=== PATIENT | female | born 1935 | race Two or more races ===

== ENCOUNTER → 2016-11-17 | Outpatient (CLI) | payer MEDICARE, OTHER ==
[~2016-11-17] MED LIST: ACET-1079 PO; B-CO1CAP6 PO; CHOL20007 PO; DULO60CA PO; FURO20TA3 PO; LACT10SO44 OR; MAGN400T5 PO; METO25TA5 PO; MULT-195 OR; PANT1INJ3 PO; POT20T PO
[2016-11-17 11:06] LABS: Urine Bilirubin Negative (Negative); Urine Color Yellow (Yellow); Urine Glucose Normal (Normal); Urine Ketone Negative (Negative); Urine RBC 12 /hpf (0 - 4); Urine Squamous Epithelial Cell MANY /hpf (<5); Urine Urobilinogen Normal (Negative); Urine WBC Clumps PRESENT /hpf (None Seen); Urine pH 5.5 (5.0-8.0)
[2016-11-17 11:08] LABS: Urine Blood 1+ /uL (Negative); Urine Nitrite POSITIVE (Negative)
== END | disposition home or self-care (01) ==
LOC: LAB 10:21
PROVIDERS: ATTEND Internal Medicine
DX: N39.0 Urinary tract infection, site not specified (principal)
CPT/HCPCS: 81001; 87086

== ENCOUNTER → 2017-01-06 | Outpatient (CLI) | payer MEDICARE, OTHER, MEDICAID ==
[2017-01-06 11:09] LABS: Urine Bilirubin Negative (Negative); Urine Blood Negative /uL (Negative); Urine Color Yellow (Yellow); Urine Glucose Normal (Normal); Urine Hyaline Cast FEW /lpf (0 - 2); Urine Ketone Negative (Negative); Urine Nitrite Negative (Negative); Urine RBC <1 /hpf (0 - 4); Urine Squamous Epithelial Cell FEW /hpf (<5); Urine Urobilinogen Normal (Negative)
[2017-01-06 11:26] LABS: Albumin 3.4 g/dL (3.4-5.0); BUN/Creatinine Ratio 25.5; Calcium 7.9 mg/dL (8.5-10.1); Phosphorus 3.5 mg/dL (2.5-4.90); Potassium 4.5 mmol/L (3.5-5.1)
== END | disposition home or self-care (01) ==
LOC: LAB 09:46
PROVIDERS: ATTEND Internal Medicine
DX: N39.0 Urinary tract infection, site not specified (principal)
CPT/HCPCS: 36415; 80069; 81001; 82607; 84443; 87086

== ENCOUNTER → 2017-01-22 | Outpatient (CLI) | payer MEDICARE, OTHER ==
[2017-01-22 13:32] LABS: Basophils # (auto) 0 uL; Basophils % (auto) 0.3 % (0.0-2.0); Eosinophils # (auto) 0.1 uL; Eosinophils % (auto) 1.8 % (0.0-7.0); Hematocrit 34.2 % (36.0-46.0); Hemoglobin 11.3 g/dL (12.2-16.2); Lymphocytes # (auto) 1.2 uL; Lymphocytes % (auto) 18.8 % (10.0-50.0); Mean Corpuscular Hemoglobin 32.1 pg (28.0-32.0); Mean Corpuscular Hgb Conc. 32.9 g/dL (32.0-36.0); Mean Corpuscular Volume 97.5 fL (80.0-100.0); Mean Platelet Volume 9.4 fL (7.4-10.4); Monocytes # (auto) 0.5 uL; Monocytes % (auto) 7.6 % (0.0-12.0); Neutrophils # (auto) 4.5 uL; Neutrophils % (auto) 71.5 % (37.0-80.0); Platelet Count (auto) 282 10^3/uL (140-450); Red Cell Distribution Width 14.6 % (11.6-16.0); White Blood Cell 6.3 10^3/uL (4.4-10.8)
[2017-01-22 14:33] LABS: Urine Bilirubin Negative (Negative); Urine Blood TRACE /uL (Negative); Urine Color Yellow (Yellow); Urine Glucose Normal (Normal); Urine Hyaline Cast FEW /lpf (0 - 2); Urine Ketone Negative (Negative); Urine Nitrite Negative (Negative); Urine RBC 25 /hpf (0 - 4); Urine Squamous Epithelial Cell MOD /hpf (<5); Urine Urobilinogen Normal (Negative); Urine WBC Clumps PRESENT /hpf (None Seen); Urine pH 5.5 (5.0-8.0)
[2017-01-22 14:35] LABS: Albumin 3.3 g/dL (3.4-5.0); Calcium 8.6 mg/dL (8.5-10.1); Phosphorus 3.4 mg/dL (2.5-4.90); Potassium 4.9 mmol/L (3.5-5.1); Uric Acid 7.2 mg/dL (2.6-6.0)
[2017-01-22 14:39] LABS: Urine Protein/Creatinine Ratio 0.57
== END | disposition home or self-care (01) ==
LOC: LAB 12:57
PROVIDERS: ATTEND Internal Medicine Nephrology
DX: E21.3 Hyperparathyroidism, unspecified (principal); D63.1 Anemia in chronic kidney disease; N18.3 Chronic kidney disease, stage 3 (moderate); E78.5 Hyperlipidemia, unspecified; M10.9 Gout, unspecified; R80.9 Proteinuria, unspecified; E55.9 Vitamin D deficiency, unspecified
CPT/HCPCS: 36415; 80069; 81001; 82306; 82570; 84156; 84550; 85025

== ENCOUNTER → 2017-02-23 | Outpatient (CLI) | payer MEDICARE, OTHER ==
[~2017-02-23] MED LIST changes: -ACET-1079 PO; +AMLO5TAB2 PO; -B-CO1CAP6 PO; -CHOL20007 PO; -LACT10SO44 OR; -MAGN400T5 PO; -METO25TA5 PO; -MULT-195 OR; +OXYB15TA12 PO; +PANT1INJ3 IV; -PANT1INJ3 PO; -POT20T PO; +PROP60CA8 PO; +TRAM100T37 PO
[2017-02-23 12:58] LABS: Basophils # (auto) 0 uL; Eosinophils # (auto) 0.2 uL; Eosinophils % (auto) 2.3 % (0.0-7.0); Hematocrit 35.1 % (36.0-46.0); Hemoglobin 11.3 g/dL (12.2-16.2); Mean Corpuscular Hgb Conc. 32.1 g/dL (32.0-36.0); Mean Corpuscular Volume 96.6 fL (80.0-100.0); Mean Platelet Volume 8.8 fL (7.4-10.4); Monocytes # (auto) 0.5 uL; Monocytes % (auto) 8.1 % (0.0-12.0); Neutrophils # (auto) 4.9 uL; Neutrophils % (auto) 74.6 % (37.0-80.0); Platelet Count (auto) 356 10^3/uL (140-450); Red Cell Distribution Width 15.2 % (11.6-16.0); White Blood Cell 6.5 10^3/uL (4.4-10.8)
[2017-02-23 13:25] LABS: Albumin 2.9 g/dL (3.4-5.0); BUN/Creatinine Ratio 25.8; Bilirubin, Total 0.4 mg/dL (0.2-1.0); Calcium 9.1 mg/dL (8.5-10.1); Potassium 4.8 mmol/L (3.5-5.1); Total Protein 7.3 g/dL (6.4-8.2)
== END | disposition home or self-care (01) ==
LOC: LAB 11:09
PROVIDERS: ATTEND Internal Medicine
DX: J91.0 Malignant pleural effusion (principal)
CPT/HCPCS: 36415; 80053; 82378; 83615; 85025; 86300; 86301; 86304